=== PATIENT | female | born 1970 | race Caucasian/White ===

== ENCOUNTER 2017-05-26 08:52 | Emergency (ER) | payer MEDICARE, OTHER ==
[2017-05-26 09:16] VITALS: TEMP 97.4
--- NOTE | 2017-05-26 09:18 | ED.PDOC ---
History of Present Illness - General Chief Complaint: Headache Stated Complaint: headache Time Seen by Provider: 05/26/17 09:06 Source: patient, RN notes reviewed, Vital Signs reviewed Exam Limitations: no limitations - History of Present Illness Initial Comments: Patient presents with c/o RODRIGUEZ with dizziness and vomiting after hitting L taoist on a steal pole 2 days ago. No LOC. No visual changes. Decreased sensation L cheek and forehead. Timing/Duration: constant - 48 hours Quality: moderate, constant, throbbing Head Injury Location: temporal - left Recent Head Trauma: head trauma > 24 hrs ago - struck L taoist on metal pole Improving Factors: nothing - Takes Phenergan/Zofran for a 1.5yr of undiagnosed N /V and is on chronic pain management for RA Worsening Factors: other - Touching L taoist Associated Symptoms: nausea/vomiting Allergies/Adverse Reactions: Allergies Celecoxib [From Celebrex] Allergy (Verified 05/26/17 09:16) Codeine Allergy (Verified 05/26/17 09:16) Nefazodone [From Serzone] Allergy (Verified 05/26/17 09:16) Penicillins Allergy (Verified 05/26/17 09:16) Pseudoephedrine [From Sudafed] Allergy (Verified 05/26/17 09:16) Sulfa Antibiotics Allergy (Verified 05/26/17 09:16) Home Medications: Ambulatory Orders Tramadol HCl 50 mg PO Q6HR PRN #20 tab 12/18/14 Adalimumab [Humira Pen] 40 mg SC 01/05/15 Fluoxetine HCl [Prozac] 20 mg PO DAILY 01/05/15 Lorazepam [Ativan] 1 mg PO TID PRN 01/05/15 Albuterol Sulfate Nebs [Proventil Nebs] 2.5 mg INH Q4-6H #30 vial 04/26/15 Folic Acid 1 mg PO DAILY 04/26/15 Methotrexate Sodium [Trexall] 10 mg PO WKLY 04/26/15 levoFLOXacin [Levaquin] 500 mg PO DAILY #10 tab 04/26/15 Mometasone Furoate [Elocon] 0.1 % EX BID #1 oin 09/10/15 diphenhydrAMINE HCL [Benadryl Tab/Cap] 25 mg PO Q6H #30 cap 09/10/15 predniSONE [Prednisone] 20 mg PO QAM #5 tab 09/10/15 Review of Systems - Review of Systems Constitutional: States: no symptoms reported EENTM: States: other - L taoist: tender to palpation with mild swelling.. Denies: blurred vision, ear discharge, nose congestion Respiratory: States: no symptoms reported Cardiology: States: no symptoms reported Gastrointestinal/Abdominal: States: nausea, vomiting Musculoskeletal: States: back pain, neck pain Skin: States: no symptoms reported Neurological: States: headache, numbness - L cheek and forehead. Denies: seizure, tingling, weakness All other Systems: No Change from Baseline Past Medical History (General) - Patient Medical History Hx Seizures: No Hx Stroke: No Hx Dementia: No Hx Asthma: Yes Hx of COPD: No Hx Cardiac Disorders: No Hx Congestive Heart Failure: No Hx Pacemaker: No Hx Hypertension: No Hx Thyroid Disease: No Hx Diabetes: No Hx Gastroesophageal Reflux: No Hx Renal Disease: No Hx of HIV: No Hx MRSA: No Surgical History: appendectomy, cholecystectomy, tonsillectomy, Hysterectomy - Vaccination History Hx Tetanus, Diphtheria Vaccination: Yes Hx Influenza Vaccination: Yes Hx Pneumococcal Vaccination: Yes - Social History Hx Tobacco Use: Yes Hx Alcohol Use: No Hx Substance Use: No Hx Substance Use Treatment: No Hx Depression: Yes Hx Physical Abuse: No Hx Emotional Abuse: No Hx Suspected Abuse: No - Activities of Daily Living Hospice Agency (if applicable):: None - Female History Patient is a Female of Child Bearing Age (10 -59 yrs old): No Patient : No Family Medical History - Family History Mother Family History: Unknown Physical Exam - Physical Exam General Appearance: Alert, Comfortable, No apparent distress, Well Developed, Well Groomed, Well Hydrated, Well Nourished Eyes, Ears, Nose, Throat Exam: PERRL/EOMI, normal ENT inspection, TMs normal, pharyngeal erythema Neck: non-tender, full range of motion, supple, normal inspection, trachea midline Cardiovascular/Chest: regular rate, rhythm, no gallop, no JVD, no murmur Respiratory: lungs clear, normal breath sounds, no respiratory distress, no accessory muscle use Gastrointestinal/Abdominal: normal bowel sounds, non tender, soft, no organomegaly, no pulsatile mass Extremity: normal range of motion, normal inspection 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, 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: normal hearing, normal speech, PERRL Coordination/Gait: normal gait Motor/Sensory: no motor deficit, no pronator drift, sensory deficit - Mild decreased sensation to light touch L forehead and cheek Skin Exam: warm/dry, normal color Comments: Vital Signs 05/26/17 09:02 Temperature 97.4 F L Pulse Rate [ 74 pulse ox] Respiratory 20 Rate Blood Pressure 132/84 [Left Arm] O2 Sat by Pulse 99 Oximetry Progress - EKG/XRAY/CT CT Ordered: Yes - No acute intracranial abnormality per Radiologist Departure - Departure Clinical Impression: Post concussion syndrome Concussion Qualifiers: Encounter type: initial encounter Loss of consciousness presence/duration: without LOC Qualified Code(s): S06.0X0A - Concussion without loss of consciousness, initial encounter Contusion of taoist region Qualifiers: Encounter type: initial encounter Qualified Code(s): S00.83XA - Contusion of other part of head, initial encounter Time of Disposition: 09:43 Disposition: Discharge to Home or Self Care Condition: Good Departure Forms: ED Discharge - Pt. Copy, Patient Portal Self Enrollment Instructions: DI for Concussion, DI for Postconcussion Syndrome Diet: resume usual diet Activity: increase activity as tolerated Referrals: Fabiola De MD [Primary Care Provider] - 1-2 Weeks Home Medications: Ambulatory Orders Tramadol HCl 50 mg PO Q6HR PRN #20 tab 12/18/14 Adalimumab [Humira Pen] 40 mg SC 01/05/15 Fluoxetine HCl [Prozac] 20 mg PO DAILY 01/05/15 Lorazepam [Ativan] 1 mg PO TID PRN 01/05/15 Albuterol Sulfate Nebs [Proventil Nebs] 2.5 mg INH Q4-6H #30 vial 04/26/15 Folic Acid 1 mg PO DAILY 04/26/15 Methotrexate Sodium [Trexall] 10 mg PO WKLY 04/26/15 levoFLOXacin [Levaquin] 500 mg PO DAILY #10 tab 04/26/15 Mometasone Furoate [Elocon] 0.1 % EX BID #1 oin 09/10/15 diphenhydrAMINE HCL [Benadryl Tab/Cap] 25 mg PO Q6H #30 cap 09/10/15 predniSONE [Prednisone] 20 mg PO QAM #5 tab 09/10/15
--- NOTE | 2017-05-26 09:36 | CT ---
EXAM DESCRIPTION: Head. CT head without contrast. CLINICAL HISTORY: RODRIGUEZ w/ dizziness vomiting s/p head injury to left temporal region. COMPARISON: None available TECHNIQUE: Multiple axial images of the head without contrast. This exam was performed according to our departmental dose-optimization program, which includes automated exposure control, adjustment of the mA and/or kV according to patient size and/or use of iterative reconstruction technique. FINDINGS: There is no CT evidence of intracranial hemorrhage, mass effect, or large territory infarction. The brain parenchyma and ventricles are normal. There are no abnormal extra-axial fluid collections. There is mild atherosclerotic plaque in the cavernous internal carotid arteries. There is no acute calvarial defect. The visualized paranasal sinuses and the mastoids are clear. IMPRESSION: No CT evidence of an acute intracranial abnormality. Electronically signed by: Reji Griffiths MD 05/26/2017 9:35 AM CDT
[2017-05-26 10:03] VITALS: BP 117/79; O2SAT 97
== END 2017-05-26 09:58 | disposition home or self-care (01) ==
LOC: ER 08:52
DX: S06.0X0A Concussion without loss of consciousness, initial encounter (principal); S00.83XA Contusion of other part of head, initial encounter; F32.9 Major depressive disorder, single episode, unspecified; Z88.0 Allergy status to penicillin; Z88.2 Allergy status to sulfonamides; Z79.899 Other long term (current) drug therapy; J45.909 Unspecified asthma, uncomplicated; Z87.891 Personal history of nicotine dependence; Z88.6 Allergy status to analgesic agent; W22.09XA Striking against other stationary object, initial encounter

== ENCOUNTER 2017-06-23 17:35 | Emergency (ER) | payer MEDICARE, OTHER ==
[2017-06-23] MEDS ORDERED: ACETAMINOPHEN 500 MG TAB PO ONE (18:10)
--- NOTE | 2017-06-23 18:13 | ED.PDOC ---
History of Present Illness - General Chief Complaint: Fever Stated Complaint: fever Time Seen by Provider: 06/23/17 17:54 Source: patient, RN notes reviewed, Vital Signs reviewed Exam Limitations: no limitations - History of Present Illness Initial Comments: Patient comes in with c/o fever that started today. She had a fever of 101.5 @ home but did not take anything for it. She reports she has not been feeling good for the past couple of days. Reports her mouth feels burnt. She also has chest congestion with pain with deep breathing. Reports she can't cough anything up due to not being able to take a deep breath. She is on Remicade for RA and was told to come in due to the fever. 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 Denies: ear pain, nose congestion, mouth swelling Respiratory: States: see HPI Cardiology: States: see HPI, chest pain Gastrointestinal/Abdominal: States: no symptoms reported Genitourinary: States: no symptoms reported Musculoskeletal: States: no symptoms reported Skin: States: no symptoms reported Neurological: States: no symptoms reported All other Systems: No Change from Baseline Past Medical History (General) - Patient Medical History Hx Seizures: No Hx Stroke: No Hx Dementia: No Hx Asthma: Yes Hx of COPD: No Hx Cardiac Disorders: No Hx Congestive Heart Failure: No Hx Pacemaker: No Hx Hypertension: No Hx Thyroid Disease: No Hx Diabetes: No Hx Gastroesophageal Reflux: No Hx Renal Disease: No Hx of HIV: No Hx MRSA: No Surgical History: appendectomy, cholecystectomy, tonsillectomy, Hysterectomy - Vaccination History Hx Tetanus, Diphtheria Vaccination: Yes Hx Influenza Vaccination: Yes Hx Pneumococcal Vaccination: Yes - Social History Hx Tobacco Use: Yes Hx Alcohol Use: No Hx Substance Use: No Hx Substance Use Treatment: No Hx Depression: Yes Hx Physical Abuse: No Hx Emotional Abuse: No Hx Suspected Abuse: No - Female History Patient is a Female of Child Bearing Age (10 -59 yrs old): No Patient : No Family Medical History - Family History Mother Family History: Unknown Physical Exam - Physical Exam General Appearance: Alert, No apparent distress, Ill Appearing, Well Developed, Well Groomed, Well Hydrated, Well Nourished Eye Exam: bilateral normal ENT Exam: hearing grossly normal, TMs normal, pharynx normal Neck: non-tender, full range of motion, supple, lymphadenopathy (R), lymphadenopathy (L) Respiratory: chest non-tender, lungs clear, normal breath sounds, no respiratory distress, no accessory muscle use Cardiovascular/Chest: regular rate, rhythm, no gallop, no murmur Extremity: normal inspection Neurologic: alert, normal mood/affect, oriented x 3 Skin Exam: normal color, warm/dry Comments: Vital Signs 06/23/17 06/23/17 17:43 18:06 Temperature 102.9 F H Pulse Rate [ 111 H pulse ox] Respiratory 20 20 Rate Blood Pressure 140/90 [Left Arm] O2 Sat by Pulse 94 L Oximetry Progress - Progress Progress: 06/23/17 19:02 Discussed results with patient. Reports Zithromax does not work for her and she usually ends up on Levaquin. Will give first dose of Levaquin here. - Results/Orders Results/Orders: Laboratory Tests 06/23/17 18:10 Group A Strep DNA Negative - EKG/XRAY/CT XRAY: chest - Patchy Alveolar density LLL - suggestive of pneumonia per Radiologist Departure - Departure Clinical Impression: Pneumonia Qualifiers: Pneumonia type: due to unspecified organism Laterality: left Lung location: lower lobe of lung Qualified Code(s): J18.1 - Lobar pneumonia, unspecified organism Time of Disposition: 19:03 Disposition: Discharge to Home or Self Care Condition: Good Departure Forms: ED Discharge - Pt. Copy, Patient Portal Self Enrollment Instructions: DI for Pneumonia -- Adult Diet: resume usual diet Activity: increase activity as tolerated Referrals: Fabiola De MD [Primary Care Provider] - 1-2 Weeks Prescriptions: levoFLOXacin [Levaquin] 500 mg PO DAILY #10 tab Home Medications: Ambulatory Orders Tramadol HCl 50 mg PO Q6HR PRN #20 tab 12/18/14 Adalimumab [Humira Pen] 40 mg SC 01/05/15 Fluoxetine HCl [Prozac] 20 mg PO DAILY 01/05/15 Lorazepam [Ativan] 1 mg PO TID PRN 01/05/15 Albuterol Sulfate Nebs [Proventil Nebs] 2.5 mg INH Q4-6H #30 vial 04/26/15 Folic Acid 1 mg PO DAILY 04/26/15 Methotrexate Sodium [Trexall] 10 mg PO WKLY 04/26/15 levoFLOXacin [Levaquin] 500 mg PO DAILY #10 tab 04/26/15 Mometasone Furoate [Elocon] 0.1 % EX BID #1 oin 09/10/15 diphenhydrAMINE HCL [Benadryl Tab/Cap] 25 mg PO Q6H #30 cap 09/10/15 predniSONE [Prednisone] 20 mg PO QAM #5 tab 09/10/15 levoFLOXacin [Levaquin] 500 mg PO DAILY #10 tab 06/23/17
--- NOTE | 2017-06-23 18:30 | RAD ---
EXAM DESCRIPTION: Chest,2 Views CLINICAL HISTORY: 46 years Female Fever w/ LLL pain COMPARISON: None. FINDINGS: Cardiac size and mediastinal contour within normal limits. Right lung appears clear. No pleural fluid or pneumothorax. Small amount of density in the perihilar region and left lower lobe which may reflect early infiltrate/pneumonia. IMPRESSION: Patchy alveolar density in the left lower lobe/perihilar region which may reflect pneumonia Electronically signed by: Sarah Hall 06/23/2017 6:29 PM CDT
[2017-06-23] MEDS ORDERED: levoFLOXacin 500 MG TAB PO ONE (19:01)
[2017-06-23 19:10] VITALS: BP 125/86; TEMP 101.7; O2SAT 95
== END 2017-06-23 19:10 | disposition home or self-care (01) ==
LOC: ER 17:35
DX: J18.1 Lobar pneumonia, unspecified organism (principal); F32.9 Major depressive disorder, single episode, unspecified; M06.9 Rheumatoid arthritis, unspecified; Z87.891 Personal history of nicotine dependence; Z79.899 Other long term (current) drug therapy

== ENCOUNTER → 2017-09-23 | Outpatient (CLI) | payer MEDICARE, OTHER ==
--- NOTE | 2017-09-28 07:55 | MRI ---
EXAM DESCRIPTION: Pelvis w/wo Contrast CLINICAL HISTORY: Ankylosing spondylitis. Pelvic pain. COMPARISON: None Available. TECHNIQUE: MRI of the pelvis is performed according to our usual protocol with multiplanar multi sequence imaging. Gadolinium imaging also performed. FINDINGS: SI joints patent with no bony ankylosis observed. There is subtle periarticular edema on the right side of the sacrum and very minimally so on the iliac side of the right SI joint. Additionally, there are subtle post gadolinium enhancement in this same region indicating that there is an inflammatory process involving the right SI joint. No bone destruction. No fracture seen. No left-sided abnormality. Evaluation of the lower L-spine and shows early disc disease L5-S1 with mild narrowing and desiccation of the disc and broad annular bulging with posterior midline annular tear. No stenosis or impingement is observed. The visualized facet joints are unremarkable. IMPRESSION: 1. Right-sided sacroiliitis 2. Disc disease L5-S1 with annular tear Electronically signed by: Ebenezer Holley MD 09/28/2017 7:54 AM HEALTHCARE RISK CONTROL CONSULTANT
== END | disposition home or self-care (01) ==
LOC: MRI 10:06
PROVIDERS: ATTEND Internal Medicine Rheumatology
DX: M46.1 Sacroiliitis, not elsewhere classified (principal)

== ENCOUNTER 2018-10-17 08:05 | Emergency (ER) | payer MEDICARE, OTHER ==
--- NOTE | 2018-10-17 08:21 | ED.PDOC ---
History of Present Illness - General Chief Complaint: Post Op Problems Stated Complaint: pain and drng from surgical site Time Seen by Provider: 10/17/18 08:20 Source: patient Exam Limitations: no limitations - History of Present Illness Initial Comments: Fabiola Mary 48 y/o female with surgery for placement of pain stimulator one month ago by pain specialist in came to ER with drainage and pain incision site lower lumbar area.Seen by Md for follow up 2 weeks ago was told that she might have stitched abscess which the patient had been pulling out.But the last 2 days stated with dull ache.No fever/chills. Timing/Duration: other - see hpi Severity: moderate Improving Factors: nothing Worsening Factors: nothing Associated Symptoms: other - see hpi Allergies/Adverse Reactions: Allergies Celecoxib [From Celebrex] Allergy (Verified 06/23/17 18:06) Cephalexin [From Keflex] Allergy (Verified 06/23/17 18:06) Codeine Allergy (Verified 06/23/17 18:06) Doxycycline Allergy (Verified 06/23/17 18:06) Nefazodone [From Serzone] Allergy (Verified 06/23/17 18:06) Penicillins Allergy (Verified 06/23/17 18:06) Pseudoephedrine [From Sudafed] Allergy (Verified 06/23/17 18:06) Sulfa Antibiotics Allergy (Verified 06/23/17 18:06) Home Medications: Ambulatory Orders Fluoxetine HCl [Prozac] 20 mg PO DAILY 01/05/15 Folic Acid 1 mg PO DAILY 04/26/15 Albuterol Sulfate Nebs [Proventil Nebs] 2.5 mg INH Q4-6H PRN 10/17/18 Cetirizine HCl [Zyrtec Allergy] 10 mg PO DAILY 10/17/18 Clindamycin HCl 300 mg PO BID #20 cap 10/17/18 Infliximab [Remicade] 100 mg IV 10/17/18 Methotrexate (Antirheumatic) [Rasuvo] 0.6 mg INJ 10/17/18 Tramadol HCl [Conzip] 100 mg PO Q4HR PRN #20 cap 10/17/18 Review of Systems - Review of Systems Musculoskeletal: States: see HPI All other Systems: Reviewed and Negative, No Change from Baseline Past Medical History (General) - Patient Medical History Hx Seizures: No Hx Stroke: No Hx Dementia: No Hx Asthma: Yes Hx of COPD: No Hx Cardiac Disorders: No Hx Congestive Heart Failure: No Hx Pacemaker: No Hx Hypertension: No Hx Thyroid Disease: No Hx Diabetes: No Hx Gastroesophageal Reflux: No Hx Renal Disease: No Hx of HIV: No Hx MRSA: No Hx Other PMH: Yes - Rheumatoid Arthritis;chronic back pain;ankylosing spondylitis Surgical History: cholecystectomy, gastric bypass, tonsillectomy, other - hysterectomy - Vaccination History Hx Tetanus, Diphtheria Vaccination: Yes Hx Influenza Vaccination: Yes Hx Pneumococcal Vaccination: Yes - Social History Hx Tobacco Use: Yes Hx Alcohol Use: No Hx Substance Use: No Hx Substance Use Treatment: No Hx Depression: Yes Hx Physical Abuse: No Hx Emotional Abuse: No Hx Suspected Abuse: No - Female History Patient : No Family Medical History - Family History Mother Family History: Unknown Hx Family;Other: MOM-LUPUS;Brothers-Rheumatoid Arhtritis Physical Exam - Physical Exam General Appearance: Alert, Comfortable, No apparent distress Eye Exam: bilateral normal Ears, Nose, Throat: hearing grossly normal, normal ENT inspection Neck: non-tender, supple, normal inspection Respiratory: chest non-tender, lungs clear, normal breath sounds Cardiovascular/Chest: normal peripheral pulses, regular rate, rhythm, no murmur Peripheral Pulses: radial,right: 2+, radial,left: 2+ Gastrointestinal/Abdominal: non tender, soft, no organomegaly Back Exam: no CVA tenderness, no vertebral tenderness Neurologic: alert, oriented x 3 Skin Exam: normal color, warm/dry, other - erythema along incision site lumbar area with minimal drainage note c&s takn from yellowish drainage cleanse and applied neosporin covered with sterile dressing Progress - Progress Progress: 10/17/18 08:42 Vital Signs - 8 hr 10/17/18 08:20 Temperature 99.3 F Pulse Rate [ 90 Left Brachial] Respiratory 20 Rate Blood Pressure 157/113 [Left Arm] O2 Sat by Pulse 97 Oximetry Departure - Departure Clinical Impression: Status post insertion of spinal cord stimulator Postoperative wound infection Qualifiers: Encounter type: initial encounter Qualified Code(s): T81.4XXA - Infection following a procedure, initial encounter Time of Disposition: 08:44 Disposition: Discharge to Home or Self Care Condition: Good Departure Forms: ED Discharge - Pt. Copy, Patient Portal Self Enrollment Instructions: Surgical Wound (DC), Wound Infection, How to Prevent Surgical Site Infections Prescriptions: Tramadol HCl [Conzip] 100 mg PO Q4HR PRN #20 cap PRN Reason: Pain Clindamycin HCl 300 mg PO BID #20 cap Home Medications: Ambulatory Orders Fluoxetine HCl [Prozac] 20 mg PO DAILY 01/05/15 Folic Acid 1 mg PO DAILY 04/26/15 Albuterol Sulfate Nebs [Proventil Nebs] 2.5 mg INH Q4-6H PRN 10/17/18 Cetirizine HCl [Zyrtec Allergy] 10 mg PO DAILY 10/17/18 Clindamycin HCl 300 mg PO BID #20 cap 10/17/18 Infliximab [Remicade] 100 mg IV 10/17/18 Methotrexate (Antirheumatic) [Rasuvo] 0.6 mg INJ 10/17/18 Tramadol HCl [Conzip] 100 mg PO Q4HR PRN #20 cap 10/17/18 Additional Instructions: Follow up with your pain management 19 Oct 2018
[2018-10-17] MEDS ORDERED: NEOMYCIN-BACITRACIN-POLYMYXIN 0.9 GM UD TOP ONE (08:25)
[2018-10-17 08:58] VITALS: BP 150/99; TEMP 99.2; O2SAT 98
== END 2018-10-17 08:58 | disposition home or self-care (01) ==
LOC: ER 08:05
DX: T81.40XA Infection following a procedure, unspecified, initial encounter (principal); F32.9 Major depressive disorder, single episode, unspecified; G89.29 Other chronic pain; M06.9 Rheumatoid arthritis, unspecified; J45.909 Unspecified asthma, uncomplicated; Z87.891 Personal history of nicotine dependence; Z79.899 Other long term (current) drug therapy; Z88.2 Allergy status to sulfonamides; Z88.8 Allergy status to other drugs, medicaments and biological substances; Z88.0 Allergy status to penicillin

== ENCOUNTER 2018-10-19 14:07 | Emergency (ER) | payer MEDICARE, OTHER ==
[2018-10-19 14:53] VITALS: TEMP 98.9; O2SAT 98
--- NOTE | 2018-10-19 15:26 | ED.PDOC ---
History of Present Illness - General Chief Complaint: Skin/Abrasion/Tear Time Seen by Provider: 10/19/18 14:19 Source: patient Exam Limitations: no limitations - History of Present Illness Initial Comments: PT IS APPROXIMATELY 2 WKS OUT FROM STIMULATOR PLACEMENT IN [place] REGION. WAS SEEN XXX AGO HERE AND STARTED ON CLINDAMYCIN. SHE HAS BEEN TAKING HER MEDICATIONS. HER SISTER WAS CHANGING HER DRESSINGS WHEN SHE NOTICED THE INCISION IS NOW OPEN AND ONE OF THE STIMULATOR LEADS IS NOW VISIBLE. Severity: moderate Improving Factors: nothing Worsening Factors: nothing Associated Symptoms: fever/chills - REPORTS FEVER TO 102 Allergies/Adverse Reactions: Allergies Celecoxib [From Celebrex] Allergy (Verified 06/23/17 18:06) Cephalexin [From Keflex] Allergy (Verified 06/23/17 18:06) Codeine Allergy (Verified 06/23/17 18:06) Doxycycline Allergy (Verified 06/23/17 18:06) Nefazodone [From Serzone] Allergy (Verified 06/23/17 18:06) Penicillins Allergy (Verified 06/23/17 18:06) Pseudoephedrine [From Sudafed] Allergy (Verified 06/23/17 18:06) Sulfa Antibiotics Allergy (Verified 06/23/17 18:06) Home Medications: Ambulatory Orders Fluoxetine HCl [Prozac] 20 mg PO DAILY 01/05/15 Folic Acid 1 mg PO DAILY 04/26/15 Albuterol Sulfate Nebs [Proventil Nebs] 2.5 mg INH Q4-6H PRN 10/17/18 Cetirizine HCl [Zyrtec Allergy] 10 mg PO DAILY 10/17/18 Clindamycin HCl 300 mg PO BID #20 cap 10/17/18 Infliximab [Remicade] 100 mg IV 10/17/18 Methotrexate (Antirheumatic) [Rasuvo] 0.6 mg INJ 10/17/18 Tramadol HCl [Conzip] 100 mg PO Q4HR PRN #20 cap 10/17/18 Review of Systems - Review of Systems Constitutional: States: fever. Denies: chills EENTM: States: no symptoms reported Respiratory: Denies: cough, short of breath Cardiology: Denies: chest pain, palpitations Gastrointestinal/Abdominal: Denies: abdominal pain, nausea, vomiting Genitourinary: Denies: dysuria, hematuria Musculoskeletal: States: back pain Skin: States: other - INCISION BREAKDOWN Neurological: States: no symptoms reported Endocrine: States: no symptoms reported Hematologic/Lymphatic: States: no symptoms reported Past Medical History (General) - Patient Medical History Hx Seizures: No Hx Stroke: No Hx Dementia: No Hx Asthma: Yes Hx of COPD: No Hx Cardiac Disorders: No Hx Congestive Heart Failure: No Hx Pacemaker: No Hx Hypertension: No Hx Thyroid Disease: No Hx Diabetes: No Hx Gastroesophageal Reflux: No Hx Renal Disease: No Hx Cancer: No Hx of HIV: No Hx MRSA: No - Vaccination History Hx Tetanus, Diphtheria Vaccination: Yes Hx Influenza Vaccination: Yes Hx Pneumococcal Vaccination: Yes - Social History Hx Tobacco Use: Yes Hx Alcohol Use: No Hx Substance Use: No Hx Substance Use Treatment: No Hx Depression: Yes Hx Physical Abuse: No Hx Emotional Abuse: No Hx Suspected Abuse: No - Female History Patient : No Family Medical History - Family History Mother Family History: Unknown Hx Family;Other: MOM-LUPUS;Brothers-Rheumatoid Arhtritis Physical Exam - Physical Exam General Appearance: Alert, No apparent distress Eye Exam: bilateral normal Ears, Nose, Throat: hearing grossly normal, normal ENT inspection Neck: full range of motion, supple Respiratory: lungs clear, normal breath sounds Cardiovascular/Chest: regular rate, rhythm, no murmur Gastrointestinal/Abdominal: normal bowel sounds, non tender, soft, no organomegaly Back Exam: no CVA tenderness, other - STIMULATOR INCISION NOTED L OF MIDLINE IN LUMBAR REGION. INCISION IS OPEN IN MID 3CM WITH STIMULATOR LEAD PROTRUDING SLIGHTLY FROM INCISION. Extremity: normal range of motion, non-tender, normal inspection Neurologic: no motor/sensory deficits, alert Skin Exam: normal color, warm/dry, other - SEE BACK Lymphatic: no adenopathy Progress - Progress Progress: 10/19/18 16:36 LAB REVIEWED. D/W PT'S SURGEON DR CONN IN [place]. HAS APPT TOMORROW 130. STATES IS OK TO KEEP THAT AND HE WILL EVALUATE. WILL CONTINUE CLINDAMYCIN. PT UNDERSTANDS PLAN Departure - Departure Clinical Impression: Surgical wound dehiscence Qualifiers: Encounter type: subsequent encounter Qualified Code(s): T81.31XD - Disruption of external operation (surgical) wound, not elsewhere classified, subsequent encounter Time of Disposition: 16:38 Disposition: Discharge to Home or Self Care Condition: Fair Departure Forms: ED Discharge - Pt. Copy, Patient Portal Self Enrollment Instructions: Wound Dehiscence (DC) Home Medications: Ambulatory Orders Fluoxetine HCl [Prozac] 20 mg PO DAILY 01/05/15 Folic Acid 1 mg PO DAILY 04/26/15 Albuterol Sulfate Nebs [Proventil Nebs] 2.5 mg INH Q4-6H PRN 10/17/18 Cetirizine HCl [Zyrtec Allergy] 10 mg PO DAILY 10/17/18 Clindamycin HCl 300 mg PO BID #20 cap 10/17/18 Infliximab [Remicade] 100 mg IV 10/17/18 Methotrexate (Antirheumatic) [Rasuvo] 0.6 mg INJ 10/17/18 Tramadol HCl [Conzip] 100 mg PO Q4HR PRN #20 cap 10/17/18
[2018-10-19 16:18] VITALS: BP 157/99
== END 2018-10-19 16:50 | disposition home or self-care (01) ==
LOC: ER 14:07
DX: T81.31XA Disruption of external operation (surgical) wound, not elsewhere classified, initial encounter (principal); J45.909 Unspecified asthma, uncomplicated; F32.9 Major depressive disorder, single episode, unspecified; Z87.891 Personal history of nicotine dependence; Z79.899 Other long term (current) drug therapy; Z88.8 Allergy status to other drugs, medicaments and biological substances; Z88.5 Allergy status to narcotic agent; Z88.0 Allergy status to penicillin; Z88.2 Allergy status to sulfonamides

== ENCOUNTER 2019-05-29 18:30 | Emergency (ER) | payer MEDICARE, OTHER ==
[2019-05-29 18:58] VITALS: O2SAT 97
--- NOTE | 2019-05-29 19:14 | ED.PDOC ---
History of Present Illness - General Chief Complaint: General Stated Complaint: Pt woke up w/R collar bone pain Time Seen by Provider: 05/29/19 18:42 Source: patient Exam Limitations: no limitations - History of Present Illness Initial Comments: Fabiola Mary 48 y/o female came to ER with sharp constant pain below right collarbone since 3AM today which woke her up aggravated by moving right arm also felt numbness and tingling going down back of right upper extremity.Denies history of injury,SOB,chest pains,wheezing. Timing/Duration: other - 15 hours Severity: moderate Improving Factors: rest Worsening Factors: movement Associated Symptoms: other - see hpi Allergies/Adverse Reactions: Allergies Celecoxib [From Celebrex] Allergy (Verified 06/23/17 18:06) Cephalexin [From Keflex] Allergy (Verified 06/23/17 18:06) Chlorhexidine Allergy (Verified 05/29/19 18:59) Codeine Allergy (Verified 06/23/17 18:06) Doxycycline Allergy (Verified 06/23/17 18:06) Nefazodone [From Serzone] Allergy (Verified 06/23/17 18:06) Penicillins Allergy (Verified 06/23/17 18:06) Povidone Iodine [From Betadine] Allergy (Verified 05/29/19 18:59) Pseudoephedrine [From Sudafed] Allergy (Verified 06/23/17 18:06) Sulfa Antibiotics Allergy (Verified 06/23/17 18:06) Home Medications: Ambulatory Orders Fluoxetine HCl [Prozac] 20 mg PO DAILY 01/05/15 Folic Acid 1 mg PO DAILY 04/26/15 Albuterol Sulfate Nebs [Proventil Nebs] 2.5 mg INH Q4-6H PRN 10/17/18 Cetirizine HCl [Zyrtec Allergy] 10 mg PO DAILY 10/17/18 Clindamycin HCl 300 mg PO BID #20 cap 10/17/18 Infliximab [Remicade] 100 mg IV 10/17/18 Methotrexate (Antirheumatic) [Rasuvo] 0.6 mg INJ 10/17/18 Tramadol HCl [Conzip] 100 mg PO Q4HR PRN #20 cap 10/17/18 Review of Systems - Review of Systems Constitutional: States: no symptoms reported EENTM: States: no symptoms reported Respiratory: States: no symptoms reported Cardiology: States: no symptoms reported Gastrointestinal/Abdominal: States: no symptoms reported Genitourinary: States: no symptoms reported Musculoskeletal: States: see HPI Skin: States: no symptoms reported Neurological: States: no symptoms reported Past Medical History (General) - Patient Medical History Hx Seizures: No Hx Stroke: No Hx Dementia: No Hx Asthma: Yes Hx of COPD: No Hx Cardiac Disorders: No Hx Congestive Heart Failure: No Hx Pacemaker: No Hx Hypertension: No Hx Thyroid Disease: Yes - Hypo Hx Diabetes: No Hx Gastroesophageal Reflux: No Hx Renal Disease: No Hx Cancer: No Hx of HIV: No Hx MRSA: Yes Hx Other PMH: Yes - RA,Ankylosing spondylitis,chronic back pain Surgical History: appendectomy, cholecystectomy, gastric bypass, tonsillectomy, Hysterectomy, other - hysterectomy - Vaccination History Hx Tetanus, Diphtheria Vaccination: Yes Hx Influenza Vaccination: Yes Hx Pneumococcal Vaccination: Yes Immunizations Up to Date: Yes - Social History Hx Tobacco Use: Yes Hx Alcohol Use: No Hx Substance Use: No Hx Substance Use Treatment: No Hx Depression: No Hx Physical Abuse: No Hx Emotional Abuse: No Hx Suspected Abuse: No - Female History Patient is a Female of Child Bearing Age (10 -59 yrs old): Yes Patient : No - Hyst Family Medical History - Family History Mother Family History: Unknown Hx Family;Other: MOM-LUPUS;Brothers-Rheumatoid Arhtritis Physical Exam - Physical Exam General Appearance: Alert, Comfortable, No apparent distress Eye Exam: bilateral normal Ears, Nose, Throat: hearing grossly normal, normal ENT inspection Neck: non-tender, full range of motion, supple, normal inspection Respiratory: lungs clear, normal breath sounds, other - tenderness right inferior clavicular area Cardiovascular/Chest: normal peripheral pulses, regular rate, rhythm, no murmur Peripheral Pulses: radial,right: 2+, radial,left: 2+ Gastrointestinal/Abdominal: non tender, soft, no organomegaly Back Exam: no CVA tenderness, no vertebral tenderness Extremity: no pedal edema, no calf tenderness, other - ROM with pain on abduction;flexion,extension right shoulder joint Neurologic: alert, oriented x 3 Skin Exam: normal color, warm/dry Progress - Progress Progress: 05/29/19 19:26 Vital Signs - 8 hr 05/29/19 18:35 Temperature 97.9 F Pulse Rate [L 101 H finger] Respiratory 18 Rate Blood Pressure 179/114 [L brachial] O2 Sat by Pulse 97 Oximetry - Results/Orders Results/Orders: 05/29/19 19:16 IV Care:Saline Lock per Protoc QSHIFT 05/29/19 19:30 EKG STAT Laboratory Results - last 24 hr 05/29/19 05/29/19 05/29/19 19:16 19:16 21:02 WBC 6.7 RBC 4.21 Hgb 12.7 Hct 36.5 MCV 86.8 MCH 30.1 MCHC 34.7 RDW 13.7 Plt Count 276 MPV 6.4 L Absolute Neuts (auto) 4.20 Absolute Lymphs (auto) 2.00 Absolute Monos (auto) 0.30 Absolute Eos (auto) 0.20 Absolute Basos (auto) 0.00 Neutrophils % 62.3 Lymphocytes % 30.0 Monocytes % 4.2 Eosinophils % 2.9 Basophils % 0.6 PT 9.4 INR 0.94 PTT (SP) 24.5 D-Dimer, Quantitative 0.63 H* Sodium 140 Potassium 3.7 Chloride 106 Carbon Dioxide 25 Anion Gap 12.7 BUN 16 Creatinine 0.83 BUN/Creatinine Ratio 19.3 Random Glucose 109 H Serum Osmolality 281.2 Calcium 9.1 Magnesium 2.1 Total Bilirubin 0.5 Direct Bilirubin 0.1 Indirect Bilirubin 0.4 AST 29 ALT 23 Alkaline Phosphatase 86 Creatine Kinase 66 CK-MB (CK-2) 0.6 CK-MB (CK-2) % Not Reportable Troponin I < 0.02 < 0.02 Serum Total Protein 7.8 Albumin 3.7 Discuss all test results with patient - EKG/XRAY/CT EKG: Sinus, no ST T wave changes Comments: HR-85;LAE;LVH CT Ordered: Yes - CTA Chest-NO PULMONARY EMBOLUS Departure - Departure Clinical Impression: Chest pain Qualifiers: Chest pain type: unspecified Qualified Code(s): R07.9 - Chest pain, unspecified Time of Disposition: 22:03 Disposition: Discharge to Home or Self Care Condition: Fair Departure Forms: ED Discharge - Pt. Copy, Patient Portal Self Enrollment Instructions: Chest Pain That Is Not Caused by the Heart (DC), Chest Pain (DC) Home Medications: Ambulatory Orders Fluoxetine HCl [Prozac] 20 mg PO DAILY 01/05/15 Folic Acid 1 mg PO DAILY 04/26/15 Albuterol Sulfate Nebs [Proventil Nebs] 2.5 mg INH Q4-6H PRN 10/17/18 Cetirizine HCl [Zyrtec Allergy] 10 mg PO DAILY 10/17/18 Clindamycin HCl 300 mg PO BID #20 cap 10/17/18 Infliximab [Remicade] 100 mg IV 10/17/18 Methotrexate (Antirheumatic) [Rasuvo] 0.6 mg INJ 10/17/18 Tramadol HCl [Conzip] 100 mg PO Q4HR PRN #20 cap 10/17/18 Additional Instructions: Return to emergency room as needed;follow up with primary Md 31 May 2019 for recheck
[2019-05-29] MEDS: MORPHINE SULFATE INJ 10 MG/ML VIAL IV ONE (19:53)
[2019-05-29] MEDS: MORPHINE SULFATE INJ 10 MG/ML VIAL IM ONE (19:53)
[2019-05-29] MEDS: ORPHENADRINE CITRATE 30 MG/ML AMP IV ONE (19:53)
[2019-05-29] MEDS: ORPHENADRINE CITRATE 30 MG/ML AMP IM ONE (19:54)
--- NOTE | 2019-05-29 19:57 | RAD ---
EXAM DESCRIPTION: AP view of the chest CLINICAL HISTORY:48 years Female, pain Comparison: None FINDINGS: No focal lung consolidation. No pleural effusion. No pneumothorax. Cardiac and mediastinal silhouette is unremarkable. No acute osseous abnormality. Soft tissues are unremarkable. IMPRESSION: No acute findings. No focal lung consolidation. Electronically signed by: Fernando Mcghee DO 05/29/2019 7:55 PM CDT
--- NOTE | 2019-05-29 20:07 | RAD ---
EXAM DESCRIPTION: Cervical Spine, 2-3 Views CLINICAL HISTORY: 48 years Female pain COMPARISON: None. TECHNIQUE: Three views of the cervical spine. FINDINGS: Vertebral body alignment is unremarkable. No acute fractures are identified. The prevertebral soft tissues appear unremarkable. IMPRESSION: No acute fracture is identified. CT could be obtained to better evaluate if there is continued clinical concern. Electronically signed by: Gurpreet Hall MD 05/29/2019 8:05 PM CDT
--- NOTE | 2019-05-29 20:08 | RAD ---
EXAM DESCRIPTION: Shoulder, right 2 or More Views CLINICAL HISTORY: 48 years Female pain COMPARISON: None. TECHNIQUE: Two views of the right shoulder. FINDINGS: No acute fractures or dislocations identified. No osseous destructive lesions. IMPRESSION: No acute fracture is identified. Electronically signed by: Gurpreet Hall MD 05/29/2019 8:06 PM CDT
--- NOTE | 2019-05-29 20:59 | CT ---
EXAM DESCRIPTION: CTA Chest CLINICAL HISTORY: 48 years, Female, elevated d-dimer,CP,hx of pe/dvt COMPARISON: None. TECHNIQUE: Axial images through the chest were performed after the administration of intravenous contrast using a pulmonary embolus protocol. MIPS were performed. This exam was performed according to our departmental dose-optimization program which includes use of Automated Exposure Control, adjustment of the mA and/or kV according to patient size and/or use of iterative reconstruction technique. FINDINGS: No pulmonary embolus is identified. Normal caliber aorta without dissection. No pericardial effusion. No pleural effusion. No focal lung consolidation. No pneumothorax. Patent central airway. Soft tissues are unremarkable. No acute osseous findings. No acute abnormality within the visualized upper abdomen. Postsurgical changes from gastric surgery. Cholecystectomy. IMPRESSION: No pulmonary embolus. Electronically signed by: Fernando Mcghee DO 05/29/2019 8:58 PM CDT
[2019-05-29] MEDS: ONDANSETRON INJ 4 MG/2 ML VIAL IV ONE (21:20)
[2019-05-29] MEDS: traMADol HCL 50 MG (ER DISP) # 6 TABS PO ONE (22:09)
[2019-05-29 22:24] VITALS: BP 158/112; TEMP 98.2
== END 2019-05-29 22:25 | disposition home or self-care (01) ==
LOC: ER 18:30
DX: R07.9 Chest pain, unspecified (principal); M25.511 Pain in right shoulder; E03.9 Hypothyroidism, unspecified; J45.909 Unspecified asthma, uncomplicated; Z87.891 Personal history of nicotine dependence; Z79.899 Other long term (current) drug therapy; Z88.2 Allergy status to sulfonamides; Z88.8 Allergy status to other drugs, medicaments and biological substances; Z88.0 Allergy status to penicillin; Z88.1 Allergy status to other antibiotic agents
CPT/HCPCS: 36415; 71045; 71275; 72040; 73030; 80048; 80076; 82550; 82553; 84484; 85025; 85379; 85610; 85730; 93005; J2270; J2360; J2405

== ENCOUNTER → 2019-07-09 | Outpatient (CLI) | payer MEDICARE, OTHER ==
--- NOTE | 2019-07-13 16:54 | MAM ---
EXAM DESCRIPTION: 3D Screening BILATERAL : Digital Mammography. CLINICAL HISTORY: 49 years Female SCREENING . No complaints or personal history of breast cancer. Remote family history of breast cancer. Childbirth. Hysterectomy 20+ years. No HRT. Lifetime risk of developing breast cancer (Tyrer-Cuzick model)(%): 6.2. COMPARISON: None available.. No prior reports available. TECHNIQUE: Bilateral CC and MLO projection full-field images, digital tomosynthesis mammographic technique. Bilateral digital 2-D full-field MLO images. CAD not available for tomosynthesis or 2-D images. FINDINGS: The breast parenchymal density pattern is: Scattered areas of fibroglandular density. No skin thickening or nipple retraction. Focal area of architectural distortion in the middle third of the left breast 9:00 position, 8 cm from the nipple. Not associated with microcalcifications. No new focal, stellate mass or density, focal asymmetry , and no suspicious microcalcifications right breast. IMPRESSION: BI-RADS CATEGORY: 0 - INCOMPLETE- Need prior mammograms for comparison. FOLLOW-UP: Comparison with prior examination(s) when available. Written communication explaining the results and follow-up will be mailed to the patient and referring care provider. Electronically signed by: Jovanni Patel MD 07/13/2019 4:53 PM CDT
== END ==
LOC: MAMMO 09:30
PROVIDERS: ATTEND Emergency Medicine
DX: Z12.31 Encounter for screening mammogram for malignant neoplasm of breast (principal)

== ENCOUNTER → 2019-08-19 | Outpatient (CLI) | payer MEDICARE, OTHER ==
--- NOTE | 2019-08-20 15:41 | MAM ---
EXAM DESCRIPTION: Diagnostic Mammo,Bilateral (accession [id number]), digital mammography. Breast,Left (accession [id number]): Ultrasound CLINICAL HISTORY: 49 yearsFemaleINCONCLUSIVE MAMMOGRAM left breast architectural distortion on screening mammography. No complaints. No personal history of breast cancer. Sister with ovarian cancer and remote family history of breast cancer. Menarche age 16. Childbirth. Hysterectomy 20+ years. No HRT Lifetime risk of developing breast cancer (Tyrer-Cuzick model)(%): 6.2. COMPARISON: Bilateral screening digital breast tomosynthesis 07/09/2019. TECHNIQUE: Bilateral LM projection full-field images, digital mammographic tomosynthesis technique. Bilateral 2-D digital full-field images. LM Projection. CAD not available. . Transcutaneous scanning of the left breast utilizing bartlett-scale mode. Scanning performed by the handstitching machine armhole feller ; observation by Dr. Patel. FINDINGS: The breast parenchymal density pattern is: Scattered areas of fibroglandular density. No skin thickening or nipple retraction focal asymmetry seen on the screening study in the left breast is not well demonstrated on the current study. No new focal, stellate mass or density, focal asymmetry , and no suspicious microcalcifications bilaterally. Ultrasound: Scanning of the medial left breast middle third. Emphasis on the 9:00 region. 6 to 7 cm from the nipple. Heterogeneous fatty tissues predominantly with minimal fibroglandular tissues. No dominant solid mass or distinct cyst. No parenchymal edema or large calcifications. No overlying skin changes. IMPRESSION: BI-RADS CATEGORY: 1 - NEGATIVE FOLLOW UP: Return to routine digital bilateral screening, one year interval from July 2019. Written communication explaining the findings and follow-up, will be mailed to the patient and referring health care provider. The FINDINGS and the FOLLOW-UP plan were reviewed in person with the patient after the examination. According to the [employer], yearly mammograms are recommended starting at age 40 and continuing as long as a woman is in good health. Any breast change noted on a breast self-exam should be reported promptly to the patient's healthcare provider. Breast MRI is recommended for women with an approximately 20-25% or greater lifetime risk of breast cancer, including women with a strong family history of breast or ovarian cancer and women who have been treated for Hodgkin's disease. A negative mammographic report should not delay tissue diagnosis in patients with significant clinical history or physical findings. Extremely dense breast tissue limits the sensitivity of digital mammography. Electronically signed by: Jovanni Patel MD 08/20/2019 3:40 PM CDT
== END ==
LOC: MAMMO 15:00
PROVIDERS: ATTEND Emergency Medicine
DX: R92.8 Other abnormal and inconclusive findings on diagnostic imaging of breast (principal)

== ENCOUNTER → 2019-11-30 | Outpatient (CLI) | payer MEDICARE, OTHER ==
--- NOTE | 2019-12-01 11:47 | MRI ---
Study: MRI left wrist. Indication: PAIN IN LEFT WRIST M25.532 Technique: Multiplanar, multi sequence MRI of the left wrist obtained without intravenous contrast. Comparison: None. Findings: Remote ununited 3 mm ulnar styloid fracture. No acute fracture identified. Tiny radiocarpal, midcarpal, and distal radioulnar joint effusions. Very subtle grade 4 chondrosis and subchondral marrow change of the radial/ulnar margin of the distal radial articular surface with adjacent chondrosis of the distal pole scaphoid. Degenerative signal within the scapholunate ligament without fluid-filled tear. Lunotriquetral ligament intact. Ulnar variance is neutral, however there is cortical remodeling and subchondral marrow change at proximal/ulnar margin of the lunate with overlying chondrosis. This can indicate sequela of ulnar impaction. Central substance TFC is attenuated with a suspected full-thickness perforation. Trace tenosynovitis of the second extensor tendon compartment. No tear of the extensor tendons or flexor tendons. Flexor retinaculum, median nerve, and ulnar nerve are unremarkable. Impression: Thinning and degeneration of the TFC with a suspected full-thickness perforation. Subchondral marrow change proximal/ulnar margin of the lunate which can be seen with ulnar impaction. Ulnar variance is neutral. Tiny remote ununited ulnar styloid fracture. No acute fracture. Chondrosis and subchondral marrow change of the radial margins of the radioscaphoid joint. Additional findings as above. Electronically signed by: Marlon Mann MD 12/01/2019 11:45 AM [employer]
== END ==
LOC: MRI 11:18
PROVIDERS: ATTEND Internal Medicine Rheumatology
DX: M24.132 Other articular cartilage disorders, left wrist (principal); S52.615S Nondisplaced fracture of left ulna styloid process, sequela; M06.9 Rheumatoid arthritis, unspecified; M45.9 Ankylosing spondylitis of unspecified sites in spine; M35.7 Hypermobility syndrome; M79.7 Fibromyalgia

== ENCOUNTER → 2019-12-20 | Outpatient (CLI) | payer MEDICARE, OTHER ==
--- NOTE | 2019-12-20 13:24 | RAD ---
EXAM DESCRIPTION: Wrist,Left 3 Views CLINICAL HISTORY: 49 years Female, PAIN IN LEFT WRIST COMPARISON: None available. FINDINGS: The visualized bones are well-mineralized.No acute fracture or dislocation. Mild degenerative changes of the first carpometacarpal joint. The soft tissues appear grossly unremarkable. IMPRESSION: Mild osteoarthritis of the first carpometacarpal joint. Electronically signed by: Jackelyn Owusu MD 12/20/2019 1:22 PM [facility]
== END ==
LOC: RAD 08:02
PROVIDERS: ATTEND Orthopaedic Surgery
DX: M18.9 Osteoarthritis of first carpometacarpal joint, unspecified (principal)

== ENCOUNTER → 2020-03-01 | Outpatient (CLI) | payer MEDICARE, OTHER ==
--- NOTE | 2020-03-01 14:30 | CT ---
EXAM DESCRIPTION: Abdomen w/Contrast: Computed Tomography. CLINICAL HISTORY: RIGHT UPPER QUADRANT PAIN COMPARISON: None. TECHNIQUE: Spiral-axial scans at 5 x 5 mm intervals abdomen through the upper pelvis, after nonionic IV contrast. No oral contrast. Coronal and sagittal 2.0 mm reconstructions. No adverse reactions. Total Exam DLP: 722 mGy-cm. This exam was performed according to our departmental CT dose-optimization program which includes automated exposure control, adjustment of the mA and/or kV according to patient size and/or use of iterative reconstruction technique; to reduce radiation dose to as low as reasonably achievable (ALARA). FINDINGS: Lung bases and pleura: Negative. Liver, Stomach, Spleen, Adrenal Glands: Calcification in the liver normal size and enhancement. Prior partial gastrectomy and gastrojejunostomy. No complications. Other solid organs are negative.. Pancreas, Gallbladder, Ducts: Prior cholecystectomy with surgical clips in the gallbladder fossa but no fluid. Duct and pancreas negative. Kidneys: Unremarkable. Mesentery: Negative. Aorta: Unremarkable. Small Bowel: Minimal gas with no distention in the included segments. Terminal Ileum/Cecum: Surgical clips inferior cecum. Normal caliber. Appendix not seen. Colon: Intimal fecal matter. Distal: Not included on the examination. Spine: Negative. Abdominal Wall/Back Soft Tissues: Unremarkable. IMPRESSION: 1. No organomegaly. No free fluid or free air. No abdominal organ mass or mass in the peritoneum or retroperitoneal cavity. No findings to explain clinical findings. 2. Partial gastrectomy and gastrojejunal jejunostomy with no complications. Electronically signed by: Jovanni Patel MD 03/01/2020 2:29 PM CDT
== END ==
LOC: CT 09:32
PROVIDERS: ATTEND Nurse Practitioner Family
DX: R10.11 Right upper quadrant pain (principal); Z90.3 Acquired absence of stomach [part of]; Z93.1 Gastrostomy status

== ENCOUNTER → 2020-03-16 | Outpatient (CLI) | payer MEDICARE, OTHER ==
--- NOTE | 2020-03-16 08:02 | RAD ---
EXAM DESCRIPTION: Wrist,Right 3 Views CLINICAL HISTORY: 49 years, Female, PAIN IN RIGHT WRIST COMPARISON: None TECHNIQUE: Three views right wrist FINDINGS: Three views right wrist demonstrate normal mineralization normal appearance of the distal radius and ulna. No carpal fracture or dislocation seen. Significant degenerative changes or evidence of previous fracture not apparent. No foreign body or soft tissue mass evident. IMPRESSION: 1. Negative right wrist three views. Electronically signed by: Reynold Chauhan MD 03/16/2020 8:01 AM CDT
== END ==
LOC: RAD 07:40
PROVIDERS: ATTEND Orthopaedic Surgery
DX: M25.531 Pain in right wrist (principal)

== ENCOUNTER 2020-05-20 18:47 | Emergency (ER) | payer MEDICARE, OTHER ==
[2020-05-20 19:21] VITALS: BP 140/108; TEMP 97.5; O2SAT 97
--- NOTE | 2020-05-20 19:27 | ED.PDOC ---
History of Present Illness - General Chief Complaint: Skin/Abrasion/Tear Stated Complaint: Shingles Time Seen by Provider: 05/20/20 19:20 Source: patient, RN notes reviewed, Vital Signs reviewed Exam Limitations: no limitations - History of Present Illness Initial Comments: This is a 49-year-old female with longstanding history of RA, on methotrexate and Remicade, as well as history of herpes zoster several years ago. She reports erythematous, painful vesicles under both breasts. She states the pain started 3 days ago and the rash began last night. She states this is exactly similar to her previous episodes of zoster. She denies any fever. She denies any eye pain, vision changes, nasal pain, ear pain. She denies any headache or neck stiffness at this time. Allergies/Adverse Reactions: Allergies Celecoxib [From Celebrex] Allergy (Verified 05/20/20 19:12) Cephalexin [From Keflex] Allergy (Verified 05/20/20 19:12) Chlorhexidine Allergy (Verified 05/20/20 19:12) Codeine Allergy (Verified 05/20/20 19:12) Doxycycline Allergy (Verified 05/20/20 19:12) Nefazodone [From Serzone] Allergy (Verified 05/20/20 19:12) Penicillins Allergy (Verified 05/20/20 19:12) Povidone Iodine [From Betadine] Allergy (Verified 05/20/20 19:12) Pseudoephedrine [From Sudafed] Allergy (Verified 05/20/20 19:12) Sulfa Antibiotics Allergy (Verified 05/20/20 19:12) Home Medications: Ambulatory Orders RX: Fluoxetine HCl [Prozac] 20 mg PO DAILY 01/05/15 RX: Folic Acid 1 mg PO DAILY 04/26/15 Cetirizine HCl [Zyrtec Allergy] 10 mg PO DAILY 10/17/18 Infliximab [Remicade] 100 mg IV 10/17/18 RX: Albuterol Sulfate Nebs [Proventil Nebs] 2.5 mg INH Q4-6H PRN 10/17/18 RX: Clindamycin HCl 300 mg PO BID #20 cap 10/17/18 RX: Methotrexate (Antirheumatic) [Rasuvo] 0.6 mg INJ 10/17/18 Lidocaine (Anorectal) [Lidocaine 5%] 5 % TOP Q4H PRN #1 tube 05/20/20 Pregabalin [Lyrica] 150 mg PO BID #30 cap 05/20/20 Valacyclovir HCl [Valtrex] 1 gm PO Q8HR #21 tab 05/20/20 Review of Systems - Review of Systems Constitutional: Denies: chills, fever EENTM: Denies: ear pain, nose pain, nose congestion, throat pain, mouth pain, mouth swelling Respiratory: Denies: cough, short of breath Cardiology: Denies: chest pain, edema Gastrointestinal/Abdominal: States: nausea. Denies: diarrhea, vomiting Genitourinary: Denies: dysuria, pain Musculoskeletal: Denies: joint pain, joint swelling, muscle pain Neurological: Denies: headache, paresthesia, tingling, weakness Past Medical History (General) - Patient Medical History Hx Seizures: No Hx Stroke: No Hx Dementia: No Hx Asthma: Yes Hx of COPD: No Hx Cardiac Disorders: No Hx Congestive Heart Failure: No Hx Pacemaker: No Hx Hypertension: No Hx Thyroid Disease: Yes - Hypo Hx Diabetes: No Hx Gastroesophageal Reflux: No Hx Renal Disease: No Hx Cancer: No Hx of HIV: No Hx MRSA: Yes - Vaccination History Hx Tetanus, Diphtheria Vaccination: Yes Hx Influenza Vaccination: Yes Hx Pneumococcal Vaccination: Yes - Social History Hx Tobacco Use: Yes Hx Alcohol Use: No Hx Substance Use: No Hx Substance Use Treatment: No Hx Depression: No Hx Physical Abuse: No Hx Emotional Abuse: No Hx Suspected Abuse: No - Female History Patient : No - Hyst Family Medical History - Family History Mother Family History: Unknown Hx Family;Other: MOM-LUPUS;Brothers-Rheumatoid Arhtritis Physical Exam - Physical Exam General Appearance: Alert, Comfortable Eye Exam: bilateral normal Ears, Nose, Throat: hearing grossly normal, normal ENT inspection, normal pharynx, other - No nasal lesions, no periocular lesions, vision is normal, no eye pain. No lesions within the EAC Neck: non-tender Respiratory: chest non-tender, lungs clear, normal breath sounds Cardiovascular/Chest: normal peripheral pulses, regular rate, rhythm, no edema Gastrointestinal/Abdominal: non tender, soft Back Exam: normal inspection Extremity: normal range of motion, non-tender, normal inspection Neurologic: no motor/sensory deficits, alert, oriented x 3 Skin Exam: warm/dry, rash - Painful, vesicular rash under both breasts, left greater than right. Suspicious for zoster. Progress - Progress Progress: 05/20/20 19:28 Patient states the symptoms are exactly similar to her previous episodes of zoster. She is immunocompromised making bilateral zoster more likely. No evidence of [place] Johnson syndrome at this time. No headache, no fever. Low suspicion for disseminated zoster at this time. She refused opiates for home, will discharge home on Lyrica, lidocaine cream, Valtrex. Strict warnings given to return the emergency room for facial/auricular/periocular lesions, vision changes, severe headache, fever, or any other concerns DDX: [facility]les[id number] - Departure Clinical Impression: Herpes zoster, Immunocompromised patient Time of Disposition: 19:28 Disposition: Discharge to Home or Self Care Departure Forms: ED Discharge - Pt. Copy, Patient Portal Self Enrollment Instructions: Shingles (DC) Diet: resume usual diet Activity: increase activity as tolerated Referrals: LOC HIGGINS [Primary Care Provider] - 1-5 Days Prescriptions: Valacyclovir HCl [Valtrex] 1 gm PO Q8HR #21 tab Lidocaine (Anorectal) [Lidocaine 5%] 5 % TOP Q4H PRN #1 tube PRN Reason: Pain Pregabalin [Lyrica] 150 mg PO BID #30 cap Home Medications: Ambulatory Orders RX: Fluoxetine HCl [Prozac] 20 mg PO DAILY 01/05/15 RX: Folic Acid 1 mg PO DAILY 04/26/15 Cetirizine HCl [Zyrtec Allergy] 10 mg PO DAILY 10/17/18 Infliximab [Remicade] 100 mg IV 10/17/18 RX: Albuterol Sulfate Nebs [Proventil Nebs] 2.5 mg INH Q4-6H PRN 10/17/18 RX: Clindamycin HCl 300 mg PO BID #20 cap 10/17/18 RX: Methotrexate (Antirheumatic) [Rasuvo] 0.6 mg INJ 10/17/18 Lidocaine (Anorectal) [Lidocaine 5%] 5 % TOP Q4H PRN #1 tube 05/20/20 Pregabalin [Lyrica] 150 mg PO BID #30 cap 05/20/20 Valacyclovir HCl [Valtrex] 1 gm PO Q8HR #21 tab 05/20/20
[2020-05-20] MEDS: valACYclovir 500 MG TAB PO ONE (19:36)
[2020-05-20] MEDS: PREGABALIN 75 MG CAP PO ONE (19:36)
== END 2020-05-20 19:42 | disposition home or self-care (01) ==
LOC: ER 18:47
DX: B02.9 Zoster without complications (principal); M06.9 Rheumatoid arthritis, unspecified; F17.200 Nicotine dependence, unspecified, uncomplicated; Z79.899 Other long term (current) drug therapy

== ENCOUNTER → 2020-05-29 | Outpatient (CLI) | payer MEDICARE, OTHER ==
--- NOTE | 2020-05-29 10:37 | RAD ---
EXAM DESCRIPTION: Wrist,Left 3 Views CLINICAL HISTORY: PAIN IN WRIST COMPARISON: None IMPRESSION: 3 views of the left wrist show no acute fracture, focal bone destruction, or joint dislocation. Soft tissues are unremarkable. Electronically signed by: Narendra Hicks MD 05/29/2020 10:35 AM CDT
== END ==
LOC: RAD 08:37
PROVIDERS: ATTEND Orthopaedic Surgery
DX: M25.532 Pain in left wrist (principal)